=== PATIENT | female | born 1940 | race Caucasian/White ===

== ENCOUNTER 2018-07-04 06:12 | Day surgery (SDC) | payer OTHER, BC ==
[2018-07-03 10:04] VITALS: BMI 28.3
[2018-07-04] MEDS ORDERED: TROPICAMIDE 1% OPHTH SOLN 15 ML BOTTLE ONE (06:24)
[2018-07-04] MEDS ORDERED: CIPROFLOXACIN HCL 0.3% OPHTH 2.5ML BOTTLE ONE (06:24)
[2018-07-04] MEDS ORDERED: CYCLOPENTOLATE HCL 1% OPHTH SOLN 2 ML BOTTLE ONE (06:24)
[2018-07-04] MEDS ORDERED: PHENYLEPHRINE 2.5% OPHTH SOLN 15 ML BOTTLE ONE (06:24)
[2018-07-04] MEDS: CIPROFLOXACIN HCL 0.3% OPHTH 2.5ML BOTTLE OP SCH ×3 (06:30→07:10)
[2018-07-04] MEDS: TROPICAMIDE 1% OPHTH SOLN 15 ML BOTTLE OP SCH ×3 (06:30→07:10)
[2018-07-04] MEDS: CYCLOPENTOLATE HCL 1% OPHTH SOLN 2 ML BOTTLE OP SCH ×3 (06:30→07:10)
[2018-07-04] MEDS: PHENYLEPHRINE 2.5% OPHTH SOLN 15 ML BOTTLE OP SCH ×3 (06:30→07:10)
[2018-07-04] MEDS: DICLOFENAC SODIUM 0.1% OPHTHALMIC 2.5ML BOTTLE ONE ×3 (06:55→07:32)
[2018-07-04] MEDS ORDERED: MIDAZOLAM HCL 2 MG/2 ML SINGLE DOSE VIAL ONE (07:18)
[2018-07-04] MEDS ORDERED: PROPOFOL 20 ML ONE (07:18)
[2018-07-04] MEDS ORDERED: LIDOCAINE HCL 4% PRESERVE-FREE 5 ML AMP ONE (07:35)
[2018-07-04] MEDS ORDERED: LIDOCAINE HCL/PF 1% SDV 5ML VIAL ONE (07:35)
[2018-07-04] MEDS ORDERED: POVIDONE-IODINE 5% OPHTHALMIC PREP 30 ML SOLUTION ONE (07:36)
[2018-07-04] MEDS ORDERED: EPINEPHrine/PF 1 MG/1 ML (1:1,000) AMPULE ONE (07:36)
[2018-07-04] MEDS ORDERED: oxyCODONE HCL 5 MG TABLET PO PRN ×2 (07:54)
[2018-07-04] MEDS ORDERED: ONDANSETRON 4 MG/2 ML VIAL IVPUSH PRN (07:54)
[2018-07-04] MEDS ORDERED: LIDOCAINE HCL 4% PRESERVE-FREE 5 ML AMP TP ONE (08:10)
[2018-07-04] MEDS ORDERED: POVIDONE-IODINE 5% OPHTHALMIC PREP 30 ML SOLUTION OS ONE (08:11)
[2018-07-04] MEDS ORDERED: DEXAMETHASONE SOD PHOSPHATE 4 MG/1 ML VIAL ONE (08:16)
[2018-07-04] MEDS ORDERED: BSS (NA/CA/MG/K) BALANCED SALT SOLUTION OPHTH SOLN 15 ML BOTTLE OS ONE (08:20)
[2018-07-04] MEDS ORDERED: LIDOCAINE HCL 1% PRESERVATIVE FREE - 30ML VIAL IO ONE (08:22)
[2018-07-04] MEDS ORDERED: CHONDROITIN SU A/HYALUR SOD 1 KIT IO ONE (08:24)
[2018-07-04] MEDS ORDERED: EPINEPHrine/PF 1 MG/1 ML (1:1,000) AMPULE SQ ONE (08:27)
[2018-07-04] MEDS ORDERED: FLURBIPROFEN 0.03% OPHTH SOLN 2.5 ML BOTTLE OP SCH (09:00)
[2018-07-04 09:09] VITALS: TEMP 97.4
[2018-07-04 10:11] VITALS: BP 142/72; PULSE 86
[2018-07-04] MEDS ORDERED: CHONDROITIN SU A/HYALUR SOD 1 KIT ONE (11:49)
--- NOTE | 2018-07-05 09:20 | SPEC ---
DATE OF OPERATION: 07/04/2018 PREOPERATIVE DIAGNOSIS: Cataract, left eye. POSTOPERATIVE DIAGNOSIS: Cataract, left eye. OPERATION: Planned phacoemulsification with posterior chamber lens implantation, left eye. SURGEON: Alec Henson M.D. ANESTHESIA: Topical. COMPLICATIONS: None. IMPLANTS: The intraocular lens was 24.00 SN60WF. PROCEDURE: The patient was taken to the operating room and anesthesia began with intravenous fluids and sedation. The patient then received topical anesthesia on the left eye. The patient was prepped and draped in the usual manner for sterile ophthalmic surgery. A self-sealing stab incision was made at the 9:00 and 5:00 positions. Viscoat was inserted into the anterior chamber. Using a 2.65 mm keratome, the anterior chamber was entered temporally. A 360-degree continuous capsulorrhexis was then performed. The nucleus was dislocated with hydrodissection. The nucleus was then removed from the eye in an uncomplicated fashion with the posterior capsule remaining intact. Irrigation and aspiration removed the remaining cortex from the eye. A posterior chamber lens was inserted into the bag and well centered. At this time, the remaining Provisc and Viscoat were removed from the eye. The wound was checked multiple times and nicely self-sealing. Stromal hydration was performed with balanced salt solution. The patient completed the procedure in an uncomplicated fashion and went to the ambulatory unit in stable condition. ALEC HENSON M.D. [id number]
== END 2018-07-04 10:13 | disposition home or self-care (01) ==
LOC: JASU-SURG 06:12
PROVIDERS: ATTEND Ophthalmology
PROC: 08RK3JZ Replacement of Left Lens with Synthetic Substitute, Percutaneous Approach (ICD-10-PCS; principal; 2018-07-04 08:00)
DX: H26.9 Unspecified cataract (principal)

== ENCOUNTER 2018-08-01 06:16 | Day surgery (SDC) | payer OTHER, BC ==
[2018-07-31 15:12] VITALS: BMI 28.3
[2018-08-01] MEDS ORDERED: CIPROFLOXACIN HCL 0.3% OPHTH 2.5ML BOTTLE ONE (06:45)
[2018-08-01] MEDS ORDERED: CYCLOPENTOLATE HCL 1% OPHTH SOLN 2 ML BOTTLE ONE (06:45)
[2018-08-01] MEDS ORDERED: PHENYLEPHRINE 2.5% OPHTH SOLN 15 ML BOTTLE ONE (06:46)
[2018-08-01] MEDS ORDERED: TROPICAMIDE 1% OPHTH SOLN 15 ML BOTTLE ONE (06:47)
[2018-08-01] MEDS: CIPROFLOXACIN HCL 0.3% OPHTH 2.5ML BOTTLE OP SCH ×3 (07:00→07:30)
[2018-08-01] MEDS: CYCLOPENTOLATE HCL 1% OPHTH SOLN 2 ML BOTTLE OP SCH ×3 (07:00→07:30)
[2018-08-01] MEDS: TROPICAMIDE 1% OPHTH SOLN 15 ML BOTTLE OP SCH ×3 (07:00→07:31)
[2018-08-01] MEDS: PHENYLEPHRINE 2.5% OPHTH SOLN 15 ML BOTTLE OP SCH ×3 (07:00→07:30)
[2018-08-01] MEDS ORDERED: LIDOCAINE HCL 4% PRESERVE-FREE 5 ML AMP ONE (07:35)
[2018-08-01] MEDS ORDERED: LIDOCAINE HCL/PF 1% SDV 5ML VIAL ONE (07:35)
[2018-08-01] MEDS ORDERED: TRYPAN BLUE 0.5 ML DISP.SYRIN ONE (07:35)
[2018-08-01] MEDS ORDERED: EPINEPHrine/PF 1 MG/1 ML (1:1,000) AMPULE ONE (07:35)
[2018-08-01] MEDS ORDERED: POVIDONE-IODINE 5% OPHTHALMIC PREP 30 ML SOLUTION ONE (07:36)
[2018-08-01] MEDS ORDERED: TETRACAINE 0.5% OPHTH SOLN 2 ML BOTTLE ONE (07:36)
[2018-08-01] MEDS ORDERED: ACETYLCHOLINE 1:100 INTRA-OCUL 20 MG/2 ML KIT ONE (07:36)
[2018-08-01] MEDS ORDERED: MIDAZOLAM HCL 2 MG/2 ML SINGLE DOSE VIAL ONE (08:07)
[2018-08-01] MEDS ORDERED: LIDOCAINE HCL 4% TOPICAL SOLN (50 ML/BOTTLE) TP ONE (08:10)
[2018-08-01] MEDS ORDERED: LIDOCAINE HCL 1% PRESERVATIVE FREE - 30ML VIAL IO ONE (08:23)
[2018-08-01] MEDS ORDERED: CHONDROITIN SU A/HYALUR SOD 1 KIT IO ONE (08:25)
[2018-08-01] MEDS ORDERED: EPINEPHrine/PF 1 MG/1 ML (1:1,000) AMPULE SQ ONE (08:25)
[2018-08-01] MEDS ORDERED: FLURBIPROFEN 0.03% OPHTH SOLN 2.5 ML BOTTLE OP SCH (09:00)
[2018-08-01 10:32] VITALS: BP 150/72; PULSE 78; TEMP 97.8
--- NOTE | 2018-09-07 15:13 | SPEC ---
DATE OF OPERATION: 08/01/2018 PREOPERATIVE DIAGNOSIS: Cataract, right eye. POSTOPERATIVE DIAGNOSIS: Cataract, right eye. PROCEDURE: Planned phacoemulsification, posterior chamber lens, right eye. COMPLICATIONS: None. SURGEON: Alec Henson MD ANESTHESIA: Topical. DESCRIPTION OF PROCEDURE: The patient was taken to the operating room and anesthesia began with intravenous fluids and sedation. The patient then received topical anesthesia on the right eye. The patient was prepped and draped in the usual manner for sterile ophthalmic surgery. A speculum was inserted into the right eye. A self-sealing stab incision was made at the 3:00 and 10:00 positions. Viscoat was inserted into the anterior chamber. Using a 2.65 mm keratome, a self-sealing incision was made in temporal location into the anterior chamber. A 360-degree continuous capsulorrhexis was then performed. The nucleus was dislocated with hydrodissection. The nucleus was then removed from the eye with phacoemulsification with posterior capsule remaining intact. Irrigation and aspiration removed the remaining cortex from the eye. The capsule was polished. A posterior chamber lens was inserted in the bag and well centered. The remaining Viscoat was removed from the eye. The wound was self-sealing. Stromal hydration was performed for increased insurance of wound closure. The patient tolerated the procedure well and went to the ambulatory unit in stable condition. Patient completed the procedure in uncomplicated fashion, went to the ambulatory unit in stable condition. ALEC HENSON M.D. [id number]
== END 2018-08-01 10:30 | disposition home or self-care (01) ==
LOC: JASU-SURG 06:16
PROVIDERS: ATTEND Ophthalmology
PROC: 08RJ3JZ Replacement of Right Lens with Synthetic Substitute, Percutaneous Approach (ICD-10-PCS; principal; 2018-08-01 08:00)
DX: H26.9 Unspecified cataract (principal)

== ENCOUNTER 2022-05-10 10:48 | Emergency (ER) | payer OTHER, BC ==
[2022-05-10 11:09] VITALS: RESP 18; TEMP 97.6; BMI 28.8
[2022-05-10 13:03] VITALS: BP 165/84; PULSE 89
== END 2022-05-10 14:15 | disposition home or self-care (01) ==
LOC: JER 10:48
DX: I10 Essential (primary) hypertension (principal)
CPT/HCPCS: 93005; 93010; 99283-25